=== PATIENT | female | born 1990 | race Caucasian/White ===

== ENCOUNTER 2019-05-19 08:53 | Emergency (ER) | payer BC, OTHER ==
[2019-05-19] MEDS ORDERED: Ondansetron INJ* 2 MG/ML VIAL IV ONE (09:08)
[2019-05-19] MEDS ORDERED: Lactated Ringers 1000 ML Bag* 1,000 ML IV ONE (09:08)
[2019-05-19] MEDS ORDERED: Famotidine IV* 10 MG/ML 2 ML (20 mg) IV SLOW PU ONE (09:08)
--- NOTE | 2019-05-19 09:22 | ED ---
Abdominal Pain/Female - HPI Summary HPI Summary: This patient is a 28 year old F presenting to ED with a chief complaint of nausea since two months ago. Patient began to have abdominal pain this morning and worse nausea. She reports intermittent dry heaves and diarrhea. She states she has lost 20 pounds in the past two months. First responders reported a BS of 341, but our POC glucose in the ED was 108. The patient rates the pain 8/10 in severity. Symptoms aggravated by talking and moving. Symptoms alleviated by nothing. Patient denies fever, vaginal bleeding or discharge. Patient has a history of drug and alcohol abuse. - History of Current Complaint Chief Complaint: EDAbdPain Stated Complaint: GENERAL ILLNESS PER EMS Time Seen by Provider: 05/19/19 09:08 Hx Obtained From: Patient, EMS Hx Last Menstrual Period: IUD Onset/Duration: Gradual Onset, Lasting Weeks - 2 months, Still Present, Worse Since - Today Timing: Constant Severity Initially: Moderate Severity Currently: Severe Pain Intensity: 8 Pain Scale Used: 0-10 Numeric Aggravating Factor(s): Movement, Other: - Talking Alleviating Factor(s): Nothing Associated Signs and Symptoms: Positive: Nausea, Diarrhea, Other: - Dry heaves Allergies/Adverse Reactions: Allergies Allergy/AdvReac Type Severity Reaction Status Date / Time No Known Allergies Allergy Verified 05/19/19 09:09 Home Medications: Home Medications NK [No Home Medications Reported] 05/19/19 [History Confirmed 05/19/19] PMH/Surg Hx/FS Hx/Imm Hx Cardiovascular History: Reports: Hx Hypertension History: Reports: Other Problems/Disorders - IUD Sensory History: Denies: Hx Legally Blind, Hx Deafness Opthamlomology History: Denies: Hx Legally Blind EENT History: Denies: Hx Deafness Psychiatric History: Reports: Hx Substance Abuse - Surgical History Surgery Procedure, Year, and Place: BACK, LEFT FOOT X2, ORAL - Immunization History Immunizations Up to Date: Unable to Obtain/Confirm Infectious Disease History: No Infectious Disease History: Denies: Traveled Outside the [place] in Last 30 Days - Family History Known Family History: Positive: Hypertension - Social History Alcohol Use: None Hx Substance Use: Yes Substance Use Type: Reports: Marijuana Substance Use Comment - Amount & Last Used: RARE Hx Tobacco Use: No Smoking Status (MU): Never Smoked Tobacco Review of Systems Negative: Fever Gastrointestinal: Other - Dry heaves Positive: Abdominal Pain, Diarrhea, Nausea Genitourinary: Negative - Vaginal bleeding and discharge All Other Systems Reviewed And Are Negative: Yes Physical Exam - Summary Physical Exam Summary: Constitutional: Well-developed, Well-nourished, Alert. (-) Distressed Skin: Warm, Dry HENT: Normocephalic; Atraumatic Eyes: Conjunctiva normal Neck: Musculoskeletal ROM normal neck. (-) JVD, (-) Stridor, (-) Tracheal deviation Cardio: Rhythm regular, rate normal, Heart sounds normal; Intact distal pulses; The pedal pulses are 2+ and symmetric. Radial pulses are 2+ and symmetric. Pulmonary/Chest wall: Effort normal. (-) Respiratory distress, (-) Wheezes, (-) Rales Abd: Soft, (-) tenderness, (-) Distension, (-) Guarding, (-) Rebound Musculoskeletal: (-) Edema Neuro: Alert, Oriented x3 Psych: Mood and affect Normal Triage Information Reviewed: Yes Vital Signs On Initial Exam: Initial Vitals Temp Pulse Resp BP Pulse Ox 97.1 F 66 22 138/76 100 05/19/19 09:02 05/19/19 09:02 05/19/19 09:02 05/19/19 09:02 05/19/19 09:02 Vital Signs Reviewed: Yes Procedures - Sedation Patient Received Moderate/Deep Sedation with Procedure: No Diagnostics - Vital Signs Vital Signs Temp Pulse Resp BP Pulse Ox 05/19/19 09:03 63 100 05/19/19 09:02 97.1 F 62 22 138/76 100 - Laboratory Result Diagrams: 05/19/19 09:33 05/19/19 09:33 Lab Statement: Any lab studies that have been ordered have been reviewed, and results considered in the medical decision making process. - Ultrasound Abdomen Ultrasound Interpretation Completed By: Radiologist Summary of Ultrasound Findings: No evidence of cholelithiasis or biliary duct dilatation. Dr. Rivera has reviewed this radiology report. Re-Evaluation - Re-Evaluation First Eval Re-Evaluation Time: 11:23 Comment: Discussed results with patient. Still awaiting urine. Patient admits to smoking marijuana and using medical marijuana. Second Eval Re-Evaluation Time: 12:41 Comment: Patient refusing to give urine. Patient will be discharged home with dx of cannabis hyperemesis. Abdominal Pain Fem Course/Dx - Course Course Of Treatment: This patient is a 28 year old F presenting to ED with a chief complaint of nausea since two months ago worsening today with new onset abdominal pain. In the ED course, patient received Pepcid, Zofran, Benadryl, Reglan, and lactated ringers. Blood work revealed WBC 12.6, absolute neutrophils 11.4, absolute lymphocytes 0.8, CO2 15, anion gap 16, total bilirubin 2.20, direct bilirubin 0.20, indirect bilirubin 2.0, ALT 6. POC glucose 108. VBG revealed pH 7.44, pCO2 22, HCO3 18.1, O2 saturation 51.0, VBG base excess -7.1. Abdomen US revealed: No evidence of cholelithiasis or biliary duct dilatation. Patient refused to give urine. Patient will be discharged home with dx of cannabis hyperemesis. - Diagnoses Provider Diagnoses: Cannabis hyperemesis syndrome concurrent with and due to cannabis abuse Discharge ED - Sign-Out/Discharge Documenting (check all that apply): Patient Departure - Discharge - Discharge Plan Condition: Stable Disposition: HOME Patient Education Materials: Acute Nausea and Vomiting (ED), Cannabis Abuse (ED ) Referrals: [facility] [Outside] - 3 Days Additional Instructions: Please follow up with the [facility] in 1-3 days. PLEASE RETURN TO THE ER IF YOU HAVE ANY WORSENING OR CHANGING SYMPTOMS. It was a pleasure taking care of you today. - Billing Disposition and Condition Condition: STABLE Disposition: Home - Attestation Statements Document Initiated by Gabriela: Yes Documenting Scribe: Guero Sharma Provider For Whom Gabriela is Documenting (Include Credential): Wili Rivera MD Scribe Attestation: IGuero, scribed for Wili Rivera MD on 05/19/19 at 1905. Scribe Documentation Reviewed: Yes Provider Attestation: The documentation as recorded by the Guero lezama accurately reflects the service I personally performed and the decisions made by me, Wili Rivera MD Status of Scribe Document: Viewed
[2019-05-19] MEDS ORDERED: diPHENhydraMINE IV* 50 MG/ML 1 ml VIAL (BENADRYL) IV ONE (09:30)
[2019-05-19] MEDS ORDERED: Metoclopramide IV* 5 MG/ML 2 ML VIAL IV SLOW PU ONE (09:30)
[2019-05-19 09:46] LABS: ABS Lymphocytes 0.8 10^3/ul (1.0-4.8); ABS Monocytes 0.4 10^3/ul (0-0.8); ABS Neutrophils 11.4 10^3/ul (1.5-7.7); Eosinophil % 0.1 %; Hematocrit 39 % (35-47); Hemoglobin 13.6 g/dL (12.0-16.0); Lymphocyte % 6.5 %; Mean Corpuscular HGB Conc 35 g/dL (31-36); Mean Corpuscular Hemoglobin 31 pg (27-31); Mean Corpuscular Volume 89 fL (80-97); Platelet Count 274 10^3/uL (150-450); Red Blood Count 4.41 10^6 /uL (3.70-4.87); Red Cell Distribution Width 12 % (10-15); White Blood Count 12.6 10^3/uL (3.5-10.8)
[2019-05-19 10:03] LABS: ALT 6 U/L (7-52); AST 13 U/L (13-39); Albumin 4.1 g/dL (3.2-5.2); Albumin/Globulin Ratio 1.6 (1-3); Alkaline Phosphatase 55 U/L (34-104); Anion Gap 16 mmol/L (2-11); BUN/Creatinine Ratio 14.8 (8-20); Blood Urea Nitrogen 9 mg/dL (6-24); CO2 Carbon Dioxide 15 mmol/L (22-32); Calcium 8.7 mg/dL (8.6-10.3); Chloride 106 mmol/L (101-111); EGFR African American 142.4 (>60); EGFR Non-African American 117.7 (>60); Globulin 2.5 g/dL (2-4); Glucose 96 mg/dL (70-100); Potassium 3.5 mmol/L (3.5-5.0); Sodium 137 mmol/L (135-145); Total Protein 6.6 g/dL (6.4-8.9)
[2019-05-19 10:09] LABS: HCG Pregnancy < 0.60 mIU/mL
--- OUTSIDE RECORDS SUMMARY | 2019-05-19 10:11 | XMS REPORT ---
:1990 Author Organization [facility] Address [address] [place] [address] Care Team Providers Name Role Phone Lisa Vasquez Unavailable Unavailable PROBLEMS Type Condition ICD9-CM Code [id number] Code Onset Condition SNOMED Code Dates Status Problem Chronic N76.1 Active 97698441 vaginitis Problem HSV (herpes A60.9 Active 116948619 simplex virus) anogenital infection Problem History of Z86.19 Active 555971330 chlamydia ALLERGIES No Known Allergies ENCOUNTERS Encounter Location Date Diagnosis [facility] Apr, Acute vaginitis N76.0 ; [place], [place] Routine screening for STI [id number] (sexually transmitted infection) Z11.3 ; Encounter for HIV counseling Z71.7 ; Sexually transmitted disease counseling Z70.8 and IUD surveillance Z30.[address] Jan, Encounter for screening [place], [place] examination for sexually [id number] transmitted disease Z11.3 ; Acute vaginitis N76.0 ; Encounter for HIV counseling Z71.7 and Sexually transmitted disease counseling Z70.[address] Sep, Acute vaginitis N76.0 ; [place], [place] Encounter for HIV counseling [id number] Z71.7 ; Sexually transmitted disease counseling Z70.8 ; Routine screening for STI (sexually transmitted infection) Z11.3 ; Encounter for HIV (human immunodeficiency virus) test Z11.4 ; Dysuria R30.0 and IUD surveillance Z30.431 [facility] [address] Mar, Routine screening for STI [place] (sexually transmitted [id number] infection) Z11.3 ; Encounter for human immunodeficiency virus (HIV) counseling Z71.7 ; Counseling for sexually transmitted diseases Z70.8 and Acute vaginitis N76.[address] [facility] Mar, Encounter for [place] test, result negative Z32.02 [id number] [facility] [address] Feb, [place], [place] [id number] [facility] Nov, Acute vaginitis N76.0 ; [place] Encounter for HIV counseling [id number] Z71.7 and Sexually transmitted disease counseling Z70.[address] [facility] Nov, Chronic vaginitis N76.1 ; [place] Encounter for HIV counseling [id number] Z71.7 ; Sexually transmitted disease counseling Z70.8 ; IUD surveillance Z30.431 and Routine screening for STI (sexually transmitted infection) Z11.[address] [facility] Sep, Acute vaginitis N76.0 ; [place], [place] Encounter for HIV counseling [id number] Z71.7 ; Sexually transmitted disease counseling Z70.8 ; Routine screening for STI (sexually transmitted infection) Z11.3 ; Malka infection B37.9 and IUD surveillance Z30.[address] [facility] Apr, Acute vaginitis N76.0 ; [place] Routine screening for STI [id number] (sexually transmitted infection) Z11.3 ; Encounter for HIV counseling Z71.7 ; Sexually transmitted disease counseling Z70.8 and Contraceptive surveillance, unspecified Z30.[address] [facility] Mar, Candidal vaginitis B37.3 ; [place], [place] Routine screening for STI [id number] (sexually transmitted infection) Z11.3 ; Encounter for human immunodeficiency virus (HIV) counseling Z71.7 and Contraceptive surveillance, unspecified Z30.40 [facility] Dec, Routine screening for STI [place] (sexually transmitted [id number] infection) Z11.3 ; Acute vaginitis N76.0 ; IUD surveillance Z30.431 ; Encounter for HIV counseling Z71.7 and Sexually transmitted disease counseling Z70.[address] [facility] October, [place] [id number] [facility] October, [place] [id number] [facility] October, Encounter for screening [place] examination for sexually [id number] transmitted disease Z11.3 ; Acute vaginitis N76.0 ; Encounter for HIV counseling Z71.7 ; Sexually transmitted disease counseling Z70.8 ; Encounter for screening for infections with predominantly sexual mode of transmission Z11.3 and Encounter for surveillance of contraceptives, unspecified Z30.40 IMMUNIZATIONS No Known Immunizations SOCIAL HISTORY Never Assessed REASON FOR REFERRAL FUNCTIONAL STATUS PLAN OF CARE Activity Details Follow Up prn, Reason: Pending Test Chlamydia, JENI Pending Test Gonorrhea, JENI VITAL SIGNS Height 64 in 2019-05-09 Weight 142 lbs 2019-05-09 BMI 24.37 kg/m2 2019-05-09 Heart Rate 87 2019-05-09 Blood pressure systolic 102 mm Hg 2019-05-09 Blood pressure diastolic 80 mm Hg 2019-05-09 MEDICATIONS Medication Instructions Dosage Frequency Start End Duration Status Date Date Mirena Active MetroGel-Vagi Vaginal once 1 applicatorful Apr,, 5 day(s) Active nal 0.75 % every night at bedtime 2018 2018 Diflucan 150 Orally Once 1 tablet Apr,, 1 day Active MG 2018 2018 PROCEDURES Procedure Date Ordered Result Body Site SPECIMEN HANDLING May 09, 2019 GONORRHEA, JENI May 09, 2019 CHLAMYDIA, JENI May 09, 2019 [place] May 09, 2019 RESULTS Name Result Date Reference Range [place] 2019-05-09 +Whiff pos pH 5.0 Trichomonas neg Yeast neg Clue Cell pos WBC neg REASON FOR VISIT problem, other (LGYN) Insurance Providers [facility] Member Patient Patient Patient Patient Patient Subscriber Subscriber Subscriber Group Insurance Plan Plan Plan Plan ID Relationship Address Phone Name Date of ID Name Date of No Type Insurance Insurance Insurance Coverage to Subscriber Address Phone Name Dates Home [phone] Home self Rani [id number] [address] [place] [address] [address] EMPIRE [phone] EMPIRE self Rani [id number] BCBLUE [id number] 49 [address] [address] [place] [id number] FREE [address] FREE self Rani [id number] ACCESS CRYSTAL ACCESS [facility] [id number] MEDICAL (GENERAL) HISTORY Type Description Date Surgical History back surgery 2009 Surgical History burundian Butt lift 06/2017
[2019-05-19 13:07] VITALS: BP 132/77
== END 2019-05-19 13:00 | disposition home or self-care (01) ==
LOC: ED 08:53
DX: F12.188 Cannabis abuse with other cannabis-induced disorder (principal); R11.10 Vomiting, unspecified; I10 Essential (primary) hypertension
CPT/HCPCS: 36415; 76705; 80048; 80076; 82803; 83690; 84702; 85025; 96361; 96374; 96375; 99283; J1200; J2405; J2765